=== PATIENT | female | born 1985 | race Caucasian/White ===

== ENCOUNTER 2022-08-23 18:04 | Emergency (ER) | payer MEDICAID ==
[2022-08-23] MEDS ORDERED: Tetracaine HCl/PF 0.5% 4 ML Bottle EYELF ONE (22:27)
[2022-08-23] MEDS ORDERED: Tetracaine HCl/PF 0.5% 4 ML Bottle ONE (22:27)
== END 2022-08-23 23:15 | disposition home or self-care (01) ==
LOC: MW.ED 18:04
DX: S05.02XA Injury of conjunctiva and corneal abrasion without foreign body, left eye, initial encounter (principal); W50.4XXA Accidental scratch by another person, initial encounter
CPT/HCPCS: 99283

== ENCOUNTER 2023-09-29 09:56 | Emergency (ER) | payer SELFPAY ==
[2023-09-29] MEDS ORDERED: Tetracaine HCl/PF 0.5% 4 ML Bottle EYEBOTH ONE (10:11)
== END 2023-09-29 10:55 | disposition left against medical advice (07) ==
LOC: MW.ED 09:56
DX: Z53.21 Procedure and treatment not carried out due to patient leaving prior to being seen by health care provider (principal)

== ENCOUNTER 2024-10-25 09:06 | Emergency (ER) | payer BC ==
[2024-10-25 09:44] LABS: BASOPHILS ABSOLUTE AUTO 0.03 K/uL (0.00-0.20); BASOPHILS PERCENT AUTO 0.3 % (0.0-1.0); EOSINOPHILS PERCENT AUTO 1.1 % (0.0-6.0); HEMATOCRIT 25.8 % (37.0-47.0); HEMOGLOBIN 8.9 g/dL (12.0-16.0); IMMATURE GRAN ABSOLUTE AUTO 0.02 K/uL (0.00-0.05); IMMATURE GRAN PERCENT AUTO 0.2 % (0.0-0.4); LYMPHOCYTES ABSOLUTE AUTO 1.28 K/uL (1.00-4.80); LYMPHOCYTES PERCENT AUTO 14.2 % (24.0-44.0); MEAN CORPUSCULAR HEMOGLOBIN 31.9 pg (28.0-32.0); MEAN CORPUSCULAR HGB CONC 34.5 g/dL (32.0-36.0); MEAN CORPUSCULAR VOLUME 92.5 fL (83.0-99.0); MEAN PLATELET VOLUME 9.8 fL (9.4-12.3); MONOCYTES PERCENT AUTO 4.4 % (0.0-8.0); NEUTROPHILS ABSOLUTE AUTO 7.17 K/uL (1.80-7.70); NEUTROPHILS PERCENT AUTO 79.8 % (41.0-71.0); PLATELET COUNT,PLT 255 K/uL (150-400); RED BLOOD CELL COUNT 2.79 M/uL (4.10-5.30)
[2024-10-25 10:07] LABS: A/G RATIO 1.4 (0.9-1.6); ALBUMIN 4.2 g/dL (3.4-5.0); BILIRUBIN TOTAL 0.7 mg/dL (0.2-1.0); CALCIUM 8.8 mg/dL (8.5-10.1); CARBON DIOXIDE,CO2 21.9 mmol/L (21.0-32.0); EST CRCL DRUG DOSING (CG) 65.22 mL/min; POTASSIUM,K 3.6 mmol/L (3.5-5.1); PROTEIN TOTAL,TP 7.1 g/dL (6.4-8.2)
[2024-10-25] MEDS: Ondansetron 4 MG/2 ML SDV IVPUSH ONE (12:11)
[2024-10-25] MEDS: Morphine 4 MG/ML Syringe IVPUSH ONE (12:11)
[2024-10-25 17:16] LABS: C. TRACHOMATIS BY PCR NOT DETECTED; N. GONORRHOEAE BY PCR NOT DETECTED
== END 2024-10-25 15:50 | disposition home or self-care (01) ==
LOC: MW.ED 09:06
DX: R19.00 Intra-abdominal and pelvic swelling, mass and lump, unspecified site (principal); Z75.8 Other problems related to medical facilities and other health care; Z79.899 Other long term (current) drug therapy
CPT/HCPCS: 36415; 76856; 80053; 85025; 86304; 87491; 87591; 96374; 96375; 99284; J2270; J2405; 99283

== ENCOUNTER 2024-10-28 06:29 | Day surgery (SDC) | payer BC ==
[2024-10-27 14:32] LABS: HEMATOCRIT 25.6 % (37.0-47.0); HEMOGLOBIN 8.6 g/dL (12.0-16.0); MEAN CORPUSCULAR HEMOGLOBIN 31.4 pg (28.0-32.0); MEAN CORPUSCULAR HGB CONC 33.6 g/dL (32.0-36.0); MEAN CORPUSCULAR VOLUME 93.4 fL (83.0-99.0); MEAN PLATELET VOLUME 9.5 fL (9.4-12.3); PLATELET COUNT,PLT 326 K/uL (150-400); RED BLOOD CELL COUNT 2.74 M/uL (4.10-5.30); WHITE BLOOD CELL COUNT,WBC 7.42 K/uL (3.9-11.3)
[2024-10-27 15:07] LABS: PERCENT FE SATURATION 7.98 % (20-55)
[2024-10-28] MEDS ORDERED: Midazolam 1 MG/ML 2 ML SDV ONE (07:13)
[2024-10-28] MEDS ORDERED: dexmedeTOMIDine HCl 200 MCG/2 ML SDV ONE (07:13)
[2024-10-28] MEDS ORDERED: Dexamethasone 4 MG/ML 5 ML MDV ONE (07:13)
[2024-10-28] MEDS ORDERED: Ondansetron 4 MG/2 ML SDV ONE (07:13)
[2024-10-28] MEDS ORDERED: Sugammadex Sodium 200 MG/2 ML VIAL IV ONE (07:13)
[2024-10-28] MEDS ORDERED: fentaNYL 100 MCG/2 ML SDV ONE ×2 (07:13→09:20)
[2024-10-28] MEDS ORDERED: Rocuronium Bromide 50 MG/5 ML Syringe ONE (07:13)
[2024-10-28] MEDS ORDERED: Lidocaine 2% 5 ML SDV ONE (07:13)
[2024-10-28] MEDS ORDERED: Ketorolac 30 MG/ML SDV ONE (07:13)
[2024-10-28] MEDS ORDERED: Propofol 200 MG/20 ML SDV ONE (07:13)
[2024-10-28] MEDS ORDERED: Sodium Chloride 0.9% 20 ML ONE (07:14)
[2024-10-28] MEDS ORDERED: ceFAZolin 2 GM Vial ONE (07:14)
[2024-10-28] MEDS: Lactated Ringers 1,000 ML IV SCH (07:15)
[2024-10-28] MEDS ORDERED: Ropivacaine 0.5% 5 MG/ML 30 ML SDV ONE (07:16)
[2024-10-28] MEDS ORDERED: Methylene Blue 50 MG/10 ML Ampule ONE (07:22)
[2024-10-28] MEDS ORDERED: Bupivacaine 0.25% 30 ML SDV ONE (07:23)
[2024-10-28] MEDS: Scopalamine 1mg/3day Transdermal Patch TOP ONE (07:30)
[2024-10-28] MEDS ORDERED: Phenylephrine HCl In 0.9% NaCl 1 MG/10 ML Syringe IVPUSH PRN (07:56)
[2024-10-28] MEDS ORDERED: Morphine 2 MG/ML SYRINGE IVPUSH PRN (07:56)
[2024-10-28] MEDS ORDERED: HYDROmorphone 1 MG/ML Syringe IVPUSH PRN (07:56)
[2024-10-28] MEDS ORDERED: Ondansetron 4 MG/2 ML SDV IVPUSH PRN (07:56)
[2024-10-28] MEDS ORDERED: Naloxone 0.4 MG/ML SDV IVPUSH PRN (07:56)
[2024-10-28] MEDS ORDERED: Albuterol 0.083% 2.5 MG/3 ML Neb Soln NEB PRN (07:56)
[2024-10-28] MEDS ORDERED: Metoclopramide 10 MG/2 ML SDV IVPUSH PRN (07:56)
[2024-10-28] MEDS: fentaNYL 50 MCG/ML SDV IVPUSH PRN (10:10)
[2024-10-28] MEDS: Sodium Ferric Gluconate Cmplex 125 MG in Sodium Chloride 0.9% 100 ML IV ONE (10:43)
[2024-10-28] MEDS: Scopalamine 1mg/3day Transdermal Patch ONE (11:09)
[2024-10-28] MEDS: Acetaminophen/HYDROcodone 325-5 MG Tab PO ONE (12:30)
[2024-10-28] MEDS: Acetaminophen/HYDROcodone 325-5 MG Tab ONE (13:54)
== END 2024-10-28 13:05 | disposition home or self-care (01) ==
LOC: MW.SDS 06:29
PROVIDERS: ATTEND Obstetrics & Gynecology
DX: N83.201 Unspecified ovarian cyst, right side (principal); D64.9 Anemia, unspecified; F17.290 Nicotine dependence, other tobacco product, uncomplicated
CPT/HCPCS: 36415; 58660; 64488; 83550; 84703; 85027; 86850; 86900; 86901; A9270; J0131; J0665; J1100; J2003; J2250; J2704; J2795; J2916; J3010; J7120; J0690; J1885; J2405; J3490